=== PATIENT | female | born 1990 | race Caucasian/White ===

== ENCOUNTER 2019-10-19 06:04 | Inpatient (IN) | payer MEDICAID ==
[~2019-10-19] VITALS: Ht 154 cm; Wt 66.0 kg
[2019-10-19] VITALS (30 sets, daily range): BP systolic 90–129; BP diastolic 50–74
--- NOTE | 2019-10-19 06:15 | NUR ---
JACINTO JURADO presented to unit via from ED, accompanied by s/o, with c/o CONTRACTIONS 37 08/25 gest . JACINTO JURADO weighed, gowned, voided, and to bed. EFHM and TOCO applied, VS taken. JACINTO JURADO oriented to bed controls, call light, TV, heat, and A/C controls.
[2019-10-19] MEDS ORDERED: D5 LR IV SOLUTION 1,000 ML IV SCH (06:30)
--- NOTE | 2019-10-19 06:34 | NUR ---
notified of pt's arrival and exam. Admission order received.
[2019-10-19 06:58] LABS: BASOPHILS % (AUTO) 0 % (0-10); EOSINOPHILS # (AUTO) 0.2 10^3/uL (0.0-0.3); EOSINOPHILS % (AUTO) 2 % (0-10); HEMATOCRIT 38 % (35-52); HEMOGLOBIN 12.6 G/DL (11.5-16.0); LYMPHOCYTES # (AUTO) 2.2 X 10^3 (1.0-4.0); LYMPHOCYTES % (AUTO) 23 % (12-44); MEAN CORPUSCULAR HEMOGLOBIN 34 PG (25-34); MEAN CORPUSCULAR HGB CONC 33 G/DL (32-36); MEAN CORPUSCULAR VOLUME 102 FL (80-99); MEAN PLATELET VOLUME 11.6 FL (7.4-10.4); MONOCYTES # (AUTO) 0.6 X 10^3 (0.0-1.0); MONOCYTES % (AUTO) 6 % (0-12); NEUTROPHILS # (AUTO) 6.7 X 10^3 (1.8-7.8); NEUTROPHILS % (AUTO) 69 % (42-75); PLATELET COUNT 215 10^3/uL (130-400); RED CELL DISTRIBUTION WIDTH 12.9 % (10.0-14.5); WHITE BLOOD COUNT 9.7 10^3/uL (4.3-11.0)
[2019-10-19] MEDS ORDERED: PREN-37 PO (07:38)
[2019-10-19] MEDS ORDERED: WATER (STERILE) FOR INJECTION 20 ML ONE (08:28)
[2019-10-19] MEDS ORDERED: AMPICILLIN FOR IV USE 2,000 MG VIAL ONE (08:28)
[2019-10-19] MEDS ORDERED: AMPICILLIN FOR IV USE 2,000 MG in WATER (STERILE) FOR INJECTION 14.8 ML IV SCH (08:32)
[2019-10-19] MEDS ORDERED: MINERAL OIL CONCENTRATE 99.9% 15 ML UDC ONE (08:35)
[2019-10-19] MEDS ORDERED: LIDOCAINE 1% INJ 20 ML 20 ML VIAL ONE ×2 (08:35→10:28)
[2019-10-19] MEDS ORDERED: OXYTOCIN PRE-MIX DRIP 500 ML IV ONE ×2 (08:35→10:55)
--- NOTE | 2019-10-19 09:46 | History & Physical-OB/GYN ---
History of Present Illness History of Present Illness Reason for visit/HPI Ms. Jay presented to the hospital with the onset of contractions, leaking fluid, and was 4 cm dilated upon admission Date of Admission Oct 19, 2019 at 06:36 Date Seen by a Provider: Oct 19, 2019 Time Seen by a Provider: 09:30 I consulted on this patient on 10/19/19 09:39 Attending Physician Irving Hernandez DO Admitting Physician Irving Hernandez DO Consult Allergies and Home Medications Allergies Coded Allergies: No Known Drug Allergies (Unverified , 02/23/16) Home Medications Vit/Iron Fumarate/FA 1 Each Tablet, 1 EACH PO DAILY, (Reported) Patient Home Medication List Home Medication List Reviewed: Yes Past Klolzcj-Wojgjz-Srlplw Hx Patient Social History Marrital Status: Number of Children: 1 Number of living children: 1 Employed/Student: employed Alcohol Use: Denies Use Recreational Drug Use: No Smoking Status: Never a Smoker Physical Abuse Screen: No Sexual Abuse: No Recent Foreign Travel: No Contact w/other who traveled: No Recent Hopitalizations: No Immunizations Up To Date Pediatric: Yes Date of Influenza Vaccine: Aug 19, 2019 Seasonal Allergies Seasonal Allergies: No Surgeries No Respiratory No Cardiovascular No Neurological No Reproductive System Expected Date of Delivery: Nov 08, 2019 Hx Reproductive Disorders: No Sexually Transmitted Disease: No Female Reproductive Disorders: Denies Genitourinary No Gastrointestinal No Musculoskeletal No Endocrine History of Endocrine Disorders: No HEENT History of HEENT Disorders: No Cancer No Psychosocial History of Psychiatric Problem: No Integumentary History of Skin or Integumenta: No Blood Transfusions History of Blood Disorders: No Adverse Reaction to a Blood Tr: No Family Medical History Significant Family History: No Pertinent Family Hx Family Hx: Diabetes mellitus 19 MOTHER Hypertension 19 MOTHER Review of Systems Constitutional: see HPI Physical Exam Physical Exam Vital Signs Vital Signs Date Time Temp Pulse Resp B/P (MAP) Pulse Ox O2 Delivery O2 Flow Rate FiO2 10/19/19 08:47 89 18 119/71 (87) Room Air 10/19/19 08:31 89 18 93/55 (68) Room Air 10/19/19 08:24 36.6 10/19/19 08:17 82 18 109/67 (81) Room Air 10/19/19 08:03 83 18 116/68 (84) Room Air 3/2/20 07:45 87 18 104/67 (79) Room Air 10/19/19 07:31 90 18 108/70 (83) Room Air 10/19/19 07:26 36.8 92 18 98 Room Air 10/19/19 07:16 36.8 90 18 117/66 (83) Room Air Capillary Refill : Less Than 3 Seconds Labs Laboratory Tests 10/19/19 06:40: White Blood Count 9.7, Red Blood Count 3.75L, Hemoglobin 12.6, Hematocrit 38, Mean Corpuscular Volume 102H, Mean Corpuscular Hemoglobin 34, Mean Corpuscular H emoglobin Concent 33, Red Cell Distribution Width 12.9, Platelet Count 215, Mean Platelet Volume 11.6H, Neutrophils (%) (Auto) 69, Lymphocytes (%) (Auto) 23, Monocytes (%) (Auto) 6, Eosinophils (%) (Auto) 2, Basophils (%) (Auto) 0, Siddhartha trophils # (Auto) 6.7, Lymphocytes # (Auto) 2.2, Monocytes # (Auto) 0.6, Eosinophils # (Auto) 0.2, Basophils # (Auto) 0.0 General Appearance: No Apparent Distress, WD/WN Respiratory: Chest Non Tender, Lungs Clear, Normal Breath Sounds Cardiovascular: Regular Rate, Rhythm, No Murmur Abdominal: normal bowel sounds, non tender Labia: WNL Vagina: WNL Cervix: WNL Uterus: Enlarged () Pelvic Exam: normal external exam Extremity: Normal Inspection, Non Tender, No Calf Tenderness Assessment/Plan Assessment and Plan Assessment: Intrauterine at 37 2/7 weeks 2. SROM 3. GBS Positive Plan: IV Fluids and IV antibiotics. Pain management per patient request. I expect a normal spontaneous vaginal delivery. Admission Diagnosis Admission Status: Inpatient Order (span 2 midnights) Reason for Inpatient Admission: Intrauterine at 37 2/7 weeks in labor and GBS Positive. Clinical Quality Measures DVT/VTE Risk/Contraindication: Risk Factor Score Per Nursin RFS Level Per Nursing on Admit: 1=Low/No VTE PPIRVING MILLER DO Oct 19, 2019 09:46
[2019-10-19] MEDS ORDERED: fentaNYL INJECTION 100 MCG/2 ML AMP ONE (10:55)
[2019-10-19] MEDS ORDERED: OXYTOCIN PRE-MIX DRIP 500 ML IV SCH (11:00)
[2019-10-19] MEDS ORDERED: BENZOCAINE/MENTHOL (DERMOPLAST) 60 ML CAN TP PRN (11:00)
[2019-10-19] MEDS ORDERED: TETANUS,DIPTH,PERTUSS P/F (BOOSTRIX) 0.5 ML VIAL IM ONE (11:00)
[2019-10-19] MEDS ORDERED: MEASLES,MUMPS,RUBELLA 1 EA INJ SQ ONE (11:00)
[2019-10-19] MEDS ORDERED: WITCH HAZEL(TUCKS) 40 EA JAR TOP PRN (11:00)
[2019-10-19] MEDS ORDERED: DIBUCAINE (NUPERCAINAL) 1% OINT 30 GM TOP PRN (11:00)
--- NOTE | 2019-10-19 11:00 | OB Labor & Delivery Record ---
Vag Delivery Note Vag Delivery Note Date of Delivery: 10/19/19 Preoperative Diagnosis: Evelyn Jay is a (29 /Para / , Gestational Age (wks)37with [GBS Positive and SROM] Postoperative Diagnosis: Same Surgeon: SARAH SELBY Functional Director: [None] Anesthesia: [Local] Delivery Type: [Normal Spontaneous Vaginal Delivery with Midline Episiotomy and Repair] Findings: [Vertex, CARL] Viable [Male] , apgars [9, 9], weight [6 lb 9 oz] Lacerations: Midline episiotomy Intact placenta with 3 vessel cord. No nuchal cord, body cord or shoulder dystocia Estimated Blood Loss: [300] ml Complications: None Condition: Stable Description of Procedure: The patient is a 29 year old female who presented [with the onset of labor and SROM]. She was admitted and informed consent was obtained. Her labor course was unremarkable. She progressed to complete dilatation and began to push. She was then set up for delivery. The 's head was delivered atraumatically in the [CARL] position. The shoulders and remainder of the infant's body were then delivered without difficulty. Upon delivery, the head was held below the level of the perineum and the mouth and nares were bulb suctioned. The cord was doubly clamped and cut and the infant was handed off to the pediatric staff where NRP protocol was followed. An intact placenta with 3-vessel cord delivered via Jose A and there was found to be minimal bleeding.~ Vigorous fundal massage was performed and the fundus was found to be firm. IV oxytocin was given. Examination of the vagina and perineum revealed a [midline espisiotomy with no extension] laceration repaired in the usual fashion with 3-0 vicryl suture. Following the repair, sponge, instrument and needle counts were correct. Mom and baby were both in stable condition in the labor suite. Vitals - Labs Vital Signs - I&O Vital Signs Date Time Temp Pulse Resp B/P (MAP) Pulse Ox O2 Delivery O2 Flow Rate FiO2 10/19/19 09:31 93 18 116/74 (88) Room Air 10/19/19 09:16 95 18 118/73 (88) Room Air 10/19/19 09:02 85 18 114/72 (86) Room Air 10/19/19 08:47 89 18 119/71 (87) Room Air 10/19/19 08:31 89 18 93/55 (68) Room Air 10/19/19 08:24 36.6 10/19/19 08:17 82 18 109/67 (81) Room Air 10/19/19 08:03 83 18 116/68 (84) Room Air 10/19/19 07:45 87 18 104/67 (79) Room Air 10/19/19 07:31 90 18 108/70 (83) Room Air 10/19/19 07:26 36.8 92 18 98 Room Air 10/19/19 07:16 36.8 90 18 117/66 (83) Room Air Labs Laboratory Tests 10/19/19 06:40: White Blood Count 9.7, Red Blood Count 3.75L, Hemoglobin 12.6, Hematocrit 38, Mean Corpuscular Volume 102H, Mean Corpuscular Hemoglobin 34, Mean Corpuscular Hemoglobin Concent 33, Red Cell Distribution Width 12.9, Platelet Count 215, Mean Platelet Volume 11.6H, Neutrophils (%) (Auto) 69, Lymphocytes (%) (Auto) 23, Monocytes (%) (Auto) 6, Eosinophils (%) (Auto) 2, Basophils (%) (Auto) 0, Neutrophils # (Auto) 6.7, Lymphocytes # (Auto) 2.2, Monocytes # (Auto) 0.6, Eosinophils # (Auto) 0.2, Basophils # (Auto) 0.0 SARAH SELBY DO Oct 19, 2019 11:00
[2019-10-19] MEDS ORDERED: AMPICILLIN FOR IV USE 1,000 MG in WATER (STERILE) FOR INJECTION 7.4 ML IV SCH (12:45)
--- NOTE | 2019-10-19 13:48 | NUR ---
REFER TO LABOR FLOW SHEET.
[2019-10-19] MEDS: ACETAMINOPHEN 500 MG TAB (TYLENOL) PO SCH ×2 (13:49→19:47)
--- NOTE | 2019-10-19 13:55 | NUR ---
PT UP IN ROOM. NEW GOWN ON. ROUTINE TYLENOL GIVEN PO; SEE EMAR FOR FURTHER. PITOCIN CONTINUES INFUSING @ 125 ML/HR/PUMP. INFO PACKET PROVIDED AND REVIEWED WITH PT, PT DENIES ANY NEEDS OR QUESTIONS AT THIS TIME. WHITE BOARD UPDATED. CALL LIGHT WITHIN REACH.
[2019-10-19] MEDS ORDERED: CATHETER FLUSH 10 ML SYR IV SCH (14:00)
[2019-10-19] MEDS: IBUPROFEN 800 MG (MOTRIN) TAB PO SCH ×2 (15:36→23:36)
--- NOTE | 2019-10-19 17:30 | NUR ---
PT IN BED, DENIES ANY NEEDS AT THIS TIME. S/O AND AT THE BEDSIDE. CALL LIGHT WITHIN REACH.
--- NOTE | 2019-10-19 19:15 | NUR ---
PT AT THIS TIME. S/O AT THE BEDSIDE. LANOLIN NIPPLE OINTMENT PROVIDED PER REQUEST. NO FURTHER NEEDS VOICED. CALL LIGHT WITHIN REACH.
[2019-10-19] MEDS: DOCUSATE SODIUM 100 MG (COLACE) CAP PO SCH (19:47)
[2019-10-20] MEDS: ACETAMINOPHEN 500 MG TAB (TYLENOL) PO SCH ×3 (01:48→14:55)
[2019-10-20 05:05] VITALS: BP 100/56
[2019-10-20] MEDS ORDERED: OXC5T PO (06:45)
[2019-10-20] MEDS ORDERED: IBUP-1780 PO (06:45)
[2019-10-20] MEDS ORDERED: ACET-93 PO (06:45)
[2019-10-20] MEDS ORDERED: DCS100C PO (06:45)
--- NOTE | 2019-10-20 06:50 | Discharge Summary ---
Diagnosis/Chief Complaint Date of Admission Oct 19, 2019 at 06:36 Date of Discharge October 20, 2019 Discharge Date: Oct 20, 2019 Discharge Time: 11:00 Admission Diagnosis Admission Diagnosis Intrauterine at 37 2/7 weeks 2. SROM 3. GBS Positive Discharge Diagnosis Intrauterine at 37 2/7 weeks--delivered 2. SROM 3. GBS Positive Reason Hospital Visit Ms. Jay presented to the hospital with the onset of contractions, leaking fluid, and was 4 cm dilated upon admission Discharge Summary Hospital Course Was the Problem List Reviewed?: Yes Hospital Course Ms. Jay presented to the hospital at 37 2/7 weeks leaking fluid and contraction. She was found to be four centimeters dilated. She was known to have GBS, so she was started on IV antibiotics. She progressed to complete and after a short course of pushing delivered a healthy viable male . Her vital signs remained stable throughout her hospitalization. The remainder of her hospital course was unremarkable. She will be discharged to home with prescriptions, instructions and a follow up appointment. Labs Laboratory Tests 10/19/19 06:40: Red Blood Count 3.75L, Mean Corpuscular Volume 102H, Mean Platelet Volume 11.6H Procedures None. Discharge Physical Examination Allergies: Coded Allergies: No Known Drug Allergies (Unverified , 02/23/16) Vitals & I&Os Vital Signs Date Time Temp Pulse Resp B/P (MAP) Pulse Ox O2 Delivery O2 Flow Rate FiO2 10/20/19 05:05 36.6 76 18 100/56 (71) 97 10/19/19 15:38 Room Air General Appearance: Alert, Oriented X3, Cooperative HEENT: Atraumatic Respiratory: Clear to Auscultation, Normal Air Movement Cardiovascular: Regular Rate, No Murmurs Abdominal: Normal Bowel Sounds, Soft, No Tenderness Extremities: No Clubbing, No Cyanosis Skin: No Rashes Neuro: Normal Gait, Normal Speech Psych/Mental Status: Mental Status NL Discharge Home Medications Reviewed and agree with Discharge Medication list on patient's Discharge Instruction sheet Instructions to Patient/Family Please see electronic discharge instructions given to patient. Clinical Quality Measures DVT/VTE Risk/Contraindication: Risk Factor Score Per Nursin RFS Level Per Nursing on Admit: 1=Low/No VTE PPX SARAH SELBY DO Oct 20, 2019 06:50
[2019-10-20] MEDS ORDERED: PRENATAL VITAMIN 1 EA TAB PO SCH (07:00)
[2019-10-20 07:23] LABS: BASOPHILS % (AUTO) 0 % (0-10); EOSINOPHILS # (AUTO) 0.1 10^3/uL (0.0-0.3); EOSINOPHILS % (AUTO) 1 % (0-10); HEMATOCRIT 34 % (35-52); HEMOGLOBIN 11.1 G/DL (11.5-16.0); LYMPHOCYTES # (AUTO) 2.4 X 10^3 (1.0-4.0); LYMPHOCYTES % (AUTO) 24 % (12-44); MEAN CORPUSCULAR HEMOGLOBIN 34 PG (25-34); MEAN CORPUSCULAR HGB CONC 33 G/DL (32-36); MEAN CORPUSCULAR VOLUME 104 FL (80-99); MEAN PLATELET VOLUME 11.3 FL (7.4-10.4); MONOCYTES # (AUTO) 0.6 X 10^3 (0.0-1.0); MONOCYTES % (AUTO) 6 % (0-12); NEUTROPHILS # (AUTO) 6.9 X 10^3 (1.8-7.8); NEUTROPHILS % (AUTO) 69 % (42-75); PLATELET COUNT 176 10^3/uL (130-400); RED CELL DISTRIBUTION WIDTH 13.2 % (10.0-14.5); WHITE BLOOD COUNT 10.1 10^3/uL (4.3-11.0)
--- NOTE | 2019-10-20 08:29 | NUR ---
PT AT THIS TIME.
[2019-10-20 08:40] VITALS: BP 112/69
[2019-10-20] MEDS: IBUPROFEN 800 MG (MOTRIN) TAB PO SCH (08:41)
[2019-10-20] MEDS: DOCUSATE SODIUM 100 MG (COLACE) CAP PO SCH (08:41)
--- NOTE | 2019-10-20 08:45 | NUR ---
PT SITTING UP IN THE CHAIR, BURPING INFANT. VS OBTAINED. MEDS GIVEN PO; SEE EMAR FOR FURTHER. INITIAL SHIFT ASSESSMENT COMPLETED; SEE INTERVENTION FOR FURTHER. NO NEEDS VOICED. CALL LIGHT WITHIN REACH.
--- NOTE | 2019-10-20 10:11 | NUR ---
DISCHARGE PAPERS PROVIDED AND REVIEWED WITH PT, PT VERBALIZES UNDERSTANDING AND DENIES ANY QUESTIONS AT THIS TIME. PAPER SIGNED. RX'S ALSO PROVIDED TO PT AT THIS TIME AND PLACED INTO DISCHARGE FOLDER.
--- NOTE | 2019-10-20 11:25 | NUR ---
PT UP IN ROOM, JUST FINISHED WITH HER SHOWER; REQUESTING TOOTHBRUSH, TOOTHPASTE AND BRUSH. IV DC'D. CATHETER TIP INTACT, SITE CLEAR. SUPPLIES PROVIDED. QUESTIONS ANSWERED. NO FURTHER NEEDS VOICED.
--- NOTE | 2019-10-20 12:35 | NUR ---
PT ON THE PHONE, NO NEEDS OR QUESTIONS VOICED AT THIS TIME.
[2019-10-20 14:55] VITALS: BP 106/60
--- NOTE | 2019-10-20 15:00 | NUR ---
PT SITTING UP IN BED, HOLDING INFANT. VS OBTAINED. MEDS GIVEN PO; SEE EMAR FOR FURTHER. PT IS BEING DISCHARGED TO [facility] MOM STATUS AT THIS TIME. NO NEEDS OR QUESTIONS VOICED AT THIS TIME.
== END 2019-10-20 15:00 | disposition home or self-care (01) | DRG 807 ==
LOC: WSo 06:04 → LDRP 06:05 → WSo 06:36 → LDRP 06:36
PROVIDERS: ADMIT Obstetrics & Gynecology; ATTEND Obstetrics & Gynecology
PROC: 10E0XZZ Delivery of Products of Conception, External Approach (ICD-10-PCS; principal; 2019-10-19)
PROC: 0W8NXZZ Division of Female Perineum, External Approach (ICD-10-PCS; 2019-10-19)
DX: O99.824 Streptococcus B carrier state complicating childbirth (principal); Z37.0 Single live birth; Z3A.37 37 weeks gestation of pregnancy; Z23 Encounter for immunization
CPT/HCPCS: 36415; 85025; 86850; 86900; 86901; 90715; 99212